=== PATIENT | female | born 1955 | race Caucasian/White ===

== ENCOUNTER 2021-04-21 09:23 | Emergency (ER) | payer MEDICARE, OTHER ==
[~2021-04-21] VITALS: Ht 162.6 cm; Wt 90.9 kg
[2021-04-21] MEDS ORDERED: ADV250INH INH (09:35)
[2021-04-21] MEDS ORDERED: QUES4POW PO (09:35)
[2021-04-21] MEDS ORDERED: LISI20TA33 PO (09:35)
[2021-04-21] MEDS ORDERED: SIMV20TA22 PO (09:35)
[2021-04-21] MEDS ORDERED: ASPI81CH2 PO (09:36)
[2021-04-21] MEDS ORDERED: ACETAMINOPHEN 500 MG TAB PO ONE (10:05)
--- NOTE | 2021-04-21 10:45 | REP ---
INDICATION: fall. COMPARISON: None. TECHNIQUE: AP and lateral views of the left humerus. FINDINGS: AP and lateral views of the left humerus demonstrate normal bones, joints, and soft tissues. No fracture or subluxation is seen. No opaque foreign body noted. IMPRESSION: Negative left humerus series. <Electronically signed by Srikanth Skinner > 04/21/21 [id number]
--- NOTE | 2021-04-21 10:45 | REP ---
INDICATION: fall. COMPARISON: None. TECHNIQUE: Three views of the left shoulder are provided. FINDINGS: The left glenohumeral and acromioclavicular joints are normally aligned. Periarticular soft tissues are unremarkable. No fracture or subluxation is seen. No abnormality is noted in the visualized left hemithorax. IMPRESSION: No fracture seen. Negative left shoulder radiographs. <Electronically signed by Srikanth Skinner > 04/21/21 1043
--- NOTE | 2021-04-21 10:47 | REP ---
INDICATION: fall. COMPARISON: None. TECHNIQUE: Four views of the left elbow. FINDINGS: Four views of the left elbow demonstrate distortion of the anterior and posterior fat pads, positive fat pad sign indicating hemarthrosis. There is a slightly impacted nondisplaced fracture of the proximal radial head. There is mild spurring of the coronoid process. No proximal ulnar or distal humeral fracture is seen. No opaque foreign body noted. IMPRESSION: Nondisplaced slightly impacted fracture of the proximal radial head with hemarthrosis. <Electronically signed by Srikanth Skinner > 04/21/21 1045
--- NOTE | 2021-04-21 10:48 | REP ---
INDICATION: fall. COMPARISON: None. TECHNIQUE: AP and lateral views of the left forearm. FINDINGS: AP and lateral views of the left forearm demonstrate slightly impacted fracture of the proximal radial head. No other radial fracture is seen. No ulnar fracture is observed. Positive fat pad sign at the elbow. No opaque foreign body noted. IMPRESSION: Proximal radial head fracture. No other fracture seen. <Electronically signed by Srikanth Skinner > 04/21/21 1044
--- NOTE | 2021-04-21 10:49 | REP ---
INDICATION: fall. COMPARISON: None. TECHNIQUE: Four views of the left wrist are provided. FINDINGS: There is mild diffuse osteopenia. Four views of the left wrist demonstrate no evidence of fracture or subluxation. There is mild chondrocalcinosis. Study is otherwise unremarkable. IMPRESSION: Diffuse osteopenia and chondrocalcinosis. No traumatic abnormality seen. <Electronically signed by Srikanth Skinner > 04/21/21 [id number]
--- NOTE | 2021-04-21 10:51 | REP ---
INDICATION: fall. COMPARISON: None. TECHNIQUE: Four views of the right knee are provided. Patient was unable to be position for sunrise view. FINDINGS: Four views of the right knee demonstrate mild diffuse osteopenia. No fracture or subluxation is evident. Possible small joint effusion visible on lateral radiograph. No opaque foreign body noted. IMPRESSION: No fracture seen. Possible small supra patellar joint effusion. [place] view could not be obtained. <Electronically signed by Srikanth Skinner > 04/21/21 [id number]
[2021-04-21] MEDS ORDERED: LIDOCAINE 1% MDV 20ML VIAL INFIL ONE (15:35)
[2021-04-21 15:55] VITALS: BP 127/69
--- NOTE | 2021-04-22 09:11 | ER ---
ER CONSULTATION DATE: 04/21/2021 TIME: 2 p.m. CONSULTING SERVICE: Orthopedic surgery. CONSULTING PHYSICIAN: Ernie Cobian MD HPI: This is a 65-year-old female who presented to [facility] with left minimally displaced radial neck fracture closed injury. The patient sustained a ground level fall, had immediate pain in the left elbow and presented to [facility] Emergency Department for further evaluation and treatment. The patient received appropriate radiographs while in the ER and was diagnosed with the aforementioned. Orthopedic surgery was consulted for the aforementioned injury for further evaluation and treatment. PAST MEDICAL HISTORY: Asthma, hypertension. PAST SURGICAL HISTORY: Hysterectomy and hernia repair. SOCIAL HISTORY: Nonsmoker, nondrinker, non-IV drug user. MEDICATION ALLERGIES: PENICILLIN. CURRENT MEDICATIONS: 1. Simvastatin. 2. Lisinopril. 3. Aspirin. REVIEW OF SYSTEMS: 14 point review of systems was negative unless otherwise described in the HPI above. PHYSICAL EXAMINATION: GENERAL: Alert and oriented to person, time and place. LEFT UPPER EXTREMITY: The patient did not have any breaks in the skin. She had tenderness to palpation about the left elbow, specifically the radial head and neck to palpation. She did have full range of motion of the left elbow with 0 degrees of extension to approximately 140 degrees of elbow flexion. She had 80 degrees of supination and 80 degrees of pronation; however, this had to be encouraged as the patient did have pain throughout range of motion. Her left upper extremity is otherwise neurovascularly intact. She had 5/5 motor strength to the musculocutaneous, axillary, radial, medial and ulnar nerve distributions. Sensation intact to light touch to the distributions of the musculocutaneous, axillary, radial, median and ulnar nerve distributions. She had palpable radial and ulnar pulses and brisk capillary refill to digits under 2 seconds. IMAGING DATA: Elbow radiographs including Nora/oblique view demonstrate minimally displaced radial neck fracture of approximately 10 degrees. IMPRESSION: 65-year-old female with minimally displaced left radial neck fracture. PLAN: At this point in time given the patient's full range of motion and minimally displaced radial neck fracture the patient would best be treated with early occupational therapy encouraging range of motion of the left elbow. This does not require surgery as the patient had no mechanical block and very minimally displaced radial neck fracture. The patient, however, should protect weightbearing for 6 weeks to the left upper extremity. However, I do encourage occupational therapy for early range of motion of the left elbow. The patient will followed up with Dr. Barajas at the [facility] on April, for range of motion check, prescription for hinged elbow brace at [facility] and occupational therapy consult for early range of motion.
== END 2021-04-21 16:00 | disposition home or self-care (01) ==
LOC: M ED 09:23
DX: S52.122A Displaced fracture of head of left radius, initial encounter for closed fracture (principal); S43.402A Unspecified sprain of left shoulder joint, initial encounter; S53.402A Unspecified sprain of left elbow, initial encounter; W01.0XXA Fall on same level from slipping, tripping and stumbling without subsequent striking against object, initial encounter; Y92.018 Other place in single-family (private) house as the place of occurrence of the external cause; M25.461 Effusion, right knee; I10 Essential (primary) hypertension; J45.909 Unspecified asthma, uncomplicated; E78.5 Hyperlipidemia, unspecified; Z88.0 Allergy status to penicillin; Z79.899 Other long term (current) drug therapy; Z79.82 Long term (current) use of aspirin

== ENCOUNTER → 2021-04-30 | Outpatient (CLI) | payer MEDICARE, OTHER ==
[~2021-04-30] MED LIST: ADV250INH INH; ASPI81CH2 PO; LISI20TA33 PO; QUES4POW PO; SIMV20TA22 PO
--- NOTE | 2021-04-30 09:50 | REP ---
INDICATION: LT ELBOW FX. COMPARISON: 04/21/2021 TECHNIQUE: AP, lateral, axial views of the left elbow FINDINGS: Lateral view best demonstrates continued elevation to the anterior fat pad suggesting residual joint swelling/effusion. The subtle nondisplaced proximal radial metaphyseal/head fracture is barely evident. No further acute fracture or dislocation appreciated. IMPRESSION: Presumed improving healing proximal radial fracture. <Electronically signed by Cecilio Solorzano > 04/30/21 0928
== END ==
LOC: M SOG 08:31
PROVIDERS: ATTEND Orthopaedic Surgery
DX: S52.132A Displaced fracture of neck of left radius, initial encounter for closed fracture (principal)

== ENCOUNTER → 2021-05-21 | Outpatient (CLI) | payer MEDICARE, OTHER ==
--- NOTE | 2021-05-21 10:15 | REP ---
INDICATION: LT ELBOW FX. COMPARISON: 04/30/2021 TECHNIQUE: AP, lateral, and axial views of the left elbow FINDINGS: Radial head fracture appears mildly displaced as compared with prior examination. Correlation with physical examination and possible re-injury is required. Associated elevation to the anterior fat pad with joint effusion noted. IMPRESSION: Fracture now appears mildly displaced and requires correlation. <Electronically signed by Cecilio Solorzano > 05/21/21 1015
== END ==
LOC: M SOG 09:52
PROVIDERS: ATTEND Orthopaedic Surgery
DX: S52.132D Displaced fracture of neck of left radius, subsequent encounter for closed fracture with routine healing (principal)

== ENCOUNTER → 2021-05-21 | Outpatient (REF) | payer MEDICARE, OTHER | LOC: M LAB REF 16:31 | PROVIDERS: ATTEND Internal Medicine | DX: M10.9 Gout, unspecified (principal) ==

== ENCOUNTER → 2021-06-12 | Outpatient (CLI) | payer MEDICARE, OTHER ==
--- NOTE | 2021-06-12 11:55 | REP ---
INDICATION: LT ELBOW FX. COMPARISON: 05/21/2021 TECHNIQUE: AP and lateral views FINDINGS: The previously described radial head fracture is seen with callus formation consistent with healing. The degree of healing appears to have increased compared to the prior exam. There is no acute fracture. There is no joint effusion IMPRESSION: Healing fracture as described above. <Electronically signed by Fidel Moss > 06/12/21 [id number]
== END ==
LOC: M SOG 10:18
PROVIDERS: ATTEND Orthopaedic Surgery
DX: S52.132D Displaced fracture of neck of left radius, subsequent encounter for closed fracture with routine healing (principal); W18.30XA Fall on same level, unspecified, initial encounter; Y92.009 Unspecified place in unspecified non-institutional (private) residence as the place of occurrence of the external cause